=== PATIENT | male | born 1960 | race Two or more races ===

== ENCOUNTER 2017-12-28 16:21 | Emergency (ER) | payer SELFPAY ==
[~2017-12-28] VITALS: Ht 167.6 cm; Wt 76.0 kg
[2017-12-28 20:32] VITALS: BP 109/63
== END 2017-12-28 21:08 | disposition home or self-care (01) ==
LOC: ER 16:21
DX: F19.10 Other psychoactive substance abuse, uncomplicated (principal); R40.4 Transient alteration of awareness
CPT/HCPCS: 99283; Z7610